=== PATIENT | male | born 1995 | race Caucasian/White ===

== ENCOUNTER 2019-05-04 19:54 | Emergency (ER) | payer SELFPAY ==
[~2019-05-04] VITALS: Ht 188 cm; Wt 91.0 kg
[2019-05-04] MEDS ORDERED: RISPERIDONE 0.5MG TABLET PO SCH (20:30)
[2019-05-04 20:55] LABS: BASOPHILS % 0.6 % (0.0-2.0); EOSINOPHILS % 0.1 % (0.0-5.0); HEMATOCRIT. 45.9 % (42.0-52.0); HEMOGLOBIN. 15.8 g/dL (14.0-18.0); LYMPHOCYTES % 22.7 % (20.0-50.0); MEAN CORPUSCULAR HEMOGLOBIN 30.2 pg (28.0-32.0); MEAN CORPUSCULAR VOLUME 87.6 fL (80.0-94.0); MEAN PLATELET VOLUME 6.9 fl (7.4-10.4); MONOCYTES % 8.7 % (2.0-8.0); NEUTROPHILS % 67.9 % (40.0-76.0); PLATELET 223 x1000/uL (130-400); RED BLOOD CELL COUNT 5.24 mill/uL (4.7-6.1); RED CELL DISTRIBUTION WIDTH 14.3 % (11.6-14.6)
[2019-05-04 20:58] LABS: CLARITY URINE CLEAR (CLEAR); COLOR URINE DARK YELLOW (YELLOW); KETONES URINE 2+ (NEGATIVE); LEUKOCYTE ESTERASE URINE NEGATIVE (NEGATIVE); NITRITE URINE NEGATIVE (NEGATIVE); OCCULT BLOOD URINE NEGATIVE (NEGATIVE); PROTEIN URINE TRACE (NEGATIVE); SPECIFIC GRAVITY URINE 1.039 (1.005-1.030)
[2019-05-04 21:03] LABS: CHLORIDE 106 mEq/L (98-107)
[2019-05-04 21:07] LABS: ETHANOL BLOOD < 10 mg/dL
[2019-05-04] MEDS ORDERED: POTASSIUM CHLORIDE 20MEQ TABLET SR PO NR (21:15)
[2019-05-04 21:18] LABS: VALPROIC ACID < 3.0 ug/mL (50-100)
[2019-05-04 21:22] LABS: *AMPHETAMINES SCREEN URINE NEGATIVE (NEGATIVE); *BARBITURATES SCREEN URINE NEGATIVE (NEGATIVE)
[2019-05-04 21:23] LABS: *BENZODIAZEPINES SCREEN URINE NEGATIVE (NEGATIVE); *COCAINE SCREEN URINE NEGATIVE (NEGATIVE); CANNABINOID URINE SCREEN NEGATIVE (NEGATIVE); METHADONE URINE SCREEN NEGATIVE (NEGATIVE); OPIATES URINE SCREEN NEGATIVE (NEGATIVE); PHENCYCLIDINE URINE SCREEN NEGATIVE (NEGATIVE)
[2019-05-05] MEDS ORDERED: LORAZEPAM 1MG TABLET PO SCH (03:00)
[2019-05-05] MEDS: OLANZAPINE 5MG TABLET PO SCH (18:56)
[2019-05-05] MEDS ORDERED: LORAZEPAM 2MG/ML CPJ IM ONE (19:00)
[2019-05-06] MEDS ORDERED: LORAZEPAM 1MG TABLET PO ONE (07:15)
[2019-05-06] MEDS ORDERED: LORAZEPAM 2MG/ML CPJ IM PRN (07:45)
[2019-05-06] MEDS: OLANZAPINE 5MG TABLET PO SCH ×2 (08:17→17:24)
[2019-05-07 12:47] LABS: CHLORIDE 105 mEq/L (98-107)
[2019-05-07 13:54] VITALS: BP 119/71
== END 2019-05-07 14:07 ==
LOC: ER 19:54
DX: F29 Unspecified psychosis not due to a substance or known physiological condition (principal); E87.6 Hypokalemia; F20.9 Schizophrenia, unspecified; F32.9 Major depressive disorder, single episode, unspecified; F81.81 Disorder of written expression; Z59.0 Homelessness
CPT/HCPCS: 36415; 80048; 80053; 80165; 80305; 80320; 81003; 85025; 99285; J2060; G0480

== ENCOUNTER 2024-11-14 20:26 | Emergency (ER) | payer OTHER ==
[~2024-11-14] VITALS: Ht 188 cm; Wt 113.0 kg
[2024-11-14 20:34] VITALS: O2SAT 100
[2024-11-14 23:40] LABS: CLARITY URINE CLEAR (CLEAR); COLOR URINE YELLOW (YELLOW); GLUCOSE URINE NEGATIVE (NEGATIVE); KETONES URINE TRACE (NEGATIVE); LEUKOCYTE ESTERASE URINE NEGATIVE (NEGATIVE); NITRITE URINE NEGATIVE (NEGATIVE); OCCULT BLOOD URINE NEGATIVE (NEGATIVE); PH URINE 5.5 (4.5-8.0); PROTEIN URINE TRACE (NEGATIVE); SPECIFIC GRAVITY URINE 1.038 (1.005-1.030); UROBILINOGEN URINE 1.0 E.U./dL (0.2-1.0)
[2024-11-14 23:43] LABS: BASOPHILS % 0.4 % (0.0-2.0); CREATININE 1.2 mg/dL (0.6-1.3); EOSINOPHILS % 0.4 % (0.0-5.0); HEMATOCRIT. 42.9 % (42.0-52.0); HEMOGLOBIN. 14.6 g/dL (14.0-18.0); LYMPHOCYTES % 23.1 % (20.0-50.0); MEAN PLATELET VOLUME 6.8 fl (7.4-10.4); MONOCYTES % 7.8 % (2.0-8.0); NEUTROPHILS % 68.3 % (40.0-76.0); PLATELET 261 x1000/uL (130-400); RED BLOOD CELL COUNT 5.11 mill/uL (4.7-6.1); RED CELL DISTRIBUTION WIDTH 14.6 % (11.6-14.6); UREA NITROGEN BLOOD 14 mg/dL (9-23)
[2024-11-14 23:55] LABS: *AMPHETAMINES SCREEN URINE NEGATIVE (NEGATIVE); *BARBITURATES SCREEN URINE NEGATIVE (NEGATIVE); *BENZODIAZEPINES SCREEN URINE NEGATIVE (NEGATIVE); *COCAINE SCREEN URINE NEGATIVE (NEGATIVE); METHADONE URINE SCREEN NEGATIVE (NEGATIVE); OPIATES URINE SCREEN NEGATIVE (NEGATIVE); PHENCYCLIDINE URINE SCREEN NEGATIVE (NEGATIVE)
[2024-11-14 23:56] LABS: CANNABINOID URINE SCREEN NEGATIVE (NEGATIVE); ECSTASY MDMA SCREEN URINE NEGATIVE (NEGATIVE)
[2024-11-15] MEDS: RISPERIDONE 1MG TABLET PO SCH ×2 (00:04→09:00)
[2024-11-15] MEDS: BUPROPION HCL 150MG TABLET XL 24HR PO ONE (00:04)
[2024-11-15] MEDS: DIVALPROEX SODIUM 500MG ER TABLET PO ONE (00:04)
[2024-11-15 00:26] LABS: RBC URINE 0-2 /hpf (0-2); WBC URINE 0-2 /hpf (0-2)
[2024-11-15 00:27] LABS: BACTERIA URINE NONE SEEN; SQUAMOUS EPITHELIAL CELL URINE NONE SEEN /lpf (RARE/1+)
[2024-11-15] MEDS ORDERED: NICOTINE 7MG PATCH TD SCH (13:30)
[2024-11-15] MEDS ORDERED: BUPROPION HCL 150MG TABLET XL 24HR PO SCH (13:30)
[2024-11-15] MEDS: BUPROPION HCL 150MG TABLET XL 24HR PO SCH (13:30)
[2024-11-15] MEDS: DIVALPROEX SODIUM 500MG DR TABLET PO SCH (22:04)
[2024-11-15] MEDS: QUETIAPINE FUMARATE 50MG TABLET PO SCH (22:15)
[2024-11-16 00:36] VITALS: BP 122/69; PULSE 69; RESP 14; TEMP 36.8; O2SAT 98
== END 2024-11-16 00:51 ==
LOC: ER 20:26
DX: R45.851 Suicidal ideations (principal); F20.9 Schizophrenia, unspecified; Z79.899 Other long term (current) drug therapy; Z20.822 Contact with and (suspected) exposure to COVID-19
CPT/HCPCS: 80305; 80048; 81003; 80307; 80329; 80320; 85025; 36415; 99285; 87426; Z7610; G0480

== ENCOUNTER → 2024-11-14 | Emergency (ER) | payer SELFPAY ==
[~2024-11-14] VITALS: Ht 172.7 cm; Wt 70.0 kg
[2024-11-14 18:50] VITALS: BP 132/82; PULSE 86; RESP 16; TEMP 36.5; O2SAT 98
== END ==
LOC: ER 18:49
DX: R07.89 Other chest pain (principal); Z53.21 Procedure and treatment not carried out due to patient leaving prior to being seen by health care provider

== ENCOUNTER 2024-12-18 16:01 | Emergency (ER) | payer OTHER ==
[~2024-12-18] VITALS: Ht 188 cm; Wt 120.0 kg
[2024-12-18 16:17] VITALS: O2SAT 99
[2024-12-18 16:51] LABS: *AMPHETAMINES SCREEN URINE NEGATIVE (NEGATIVE); *BARBITURATES SCREEN URINE NEGATIVE (NEGATIVE); *BENZODIAZEPINES SCREEN URINE NEGATIVE (NEGATIVE); *COCAINE SCREEN URINE NEGATIVE (NEGATIVE); CANNABINOID URINE SCREEN NEGATIVE (NEGATIVE); ECSTASY MDMA SCREEN URINE NEGATIVE (NEGATIVE); METHADONE URINE SCREEN NEGATIVE (NEGATIVE); OPIATES URINE SCREEN NEGATIVE (NEGATIVE); PHENCYCLIDINE URINE SCREEN NEGATIVE (NEGATIVE)
[2024-12-18 18:04] LABS: BASOPHILS % 0.3 % (0.0-2.0); EOSINOPHILS % 0.2 % (0.0-5.0); HEMATOCRIT. 44.2 % (42.0-52.0); HEMOGLOBIN. 14.9 g/dL (14.0-18.0); LYMPHOCYTES % 22.4 % (20.0-50.0); MEAN PLATELET VOLUME 6.9 fl (7.4-10.4); MONOCYTES % 6.4 % (2.0-8.0); NEUTROPHILS % 70.7 % (40.0-76.0); PLATELET 183 x1000/uL (130-400); RED BLOOD CELL COUNT 5.08 mill/uL (4.7-6.1); RED CELL DISTRIBUTION WIDTH 14.0 % (11.6-14.6)
[2024-12-18 18:23] LABS: CREATININE 0.8 mg/dL (0.6-1.3)
[2024-12-18 18:24] LABS: UREA NITROGEN BLOOD 9 mg/dL (9-23)
[2024-12-18 18:25] LABS: ASPARTATE AMINOTRANSFERASE 12 IU/L (<34); BILIRUBIN DIRECT 0.1 mg/dL (<=3.0)
[2024-12-18 18:26] LABS: BILIRUBIN TOTAL 0.4 mg/dL (0.1-1.0); PROTEIN TOTAL 7.1 g/dL (6.0-8.3)
[2024-12-18] MEDS ORDERED: QUETIAPINE FUMARATE 50MG TABLET PO SCH (22:00)
[2024-12-18] MEDS: QUETIAPINE FUMARATE 200MG TABLET PO SCH (22:09)
[2024-12-18] MEDS: OLANZAPINE 10 MG/VIAL IM ONE (22:49)
[2024-12-19 00:17] VITALS: BP 100/51; PULSE 66; RESP 16; TEMP 36.6; O2SAT 97
== END 2024-12-19 00:44 ==
LOC: ER 16:01
DX: R45.851 Suicidal ideations (principal); F12.90 Cannabis use, unspecified, uncomplicated; F29 Unspecified psychosis not due to a substance or known physiological condition; F31.9 Bipolar disorder, unspecified; F25.9 Schizoaffective disorder, unspecified; Z20.822 Contact with and (suspected) exposure to COVID-19; Z79.899 Other long term (current) drug therapy
CPT/HCPCS: 80076; 80305; 80048; 80307; 80329; 80320; 83735; 85025; 36415; 96372; 99285; 87426; J3490; G0480